=== PATIENT | male | born 1970 | race Asian ===

== ENCOUNTER 2018-03-27 07:39 | Day surgery (SDC) | payer OTHER ==
[2018-03-23 10:49] VITALS: BMI 23.9
[2018-03-27] MEDS ORDERED: PROPOFOL 20 ML ONE ×2 (07:48)
[2018-03-27] MEDS ORDERED: LIDOCAINE HCL/PF 2% SDV 5ML VIAL ONE (07:49)
[2018-03-27 07:55] VITALS: TEMP 97.5
[2018-03-27 08:57] VITALS: PULSE 70
[2018-03-27 09:14] VITALS: BP 103/63
== END 2018-03-27 09:15 | disposition home or self-care (01) ==
LOC: FASU-ENDO 07:39
PROVIDERS: ATTEND Internal Medicine Gastroenterology
PROC: 0DJD8ZZ Inspection of Lower Intestinal Tract, Via Natural or Artificial Opening Endoscopic (ICD-10-PCS; principal; 2018-03-27 08:31)
DX: Z12.11 Encounter for screening for malignant neoplasm of colon (principal)